=== PATIENT | female | born 1950 | race Caucasian/White ===

== ENCOUNTER → 2018-12-13 08:04 | Outpatient (CLI) | payer MEDICARE, SELFPAY ==
[2018-12-13 09:19] LABS: Add Manual Diff / Slide Review NO; Basophils Absolute Auto 100 /uL (0-100); Basophils Percent Auto 0.9 % (0-2); Eosinophils Absolute Auto 1000 /uL (0-450); Eosinophils Percent Auto 8.6 % (2-4); Hematocrit 37.1 % (36-46); Hemoglobin 12.5 g/dL (12.0-16.0); Lymphocytes Absolute Auto 3600 /uL (1100-4500); Lymphocytes Percent Auto 30.8 % (25-40); Mean Corpuscular HGB Conc 33.6 % (30-36); Mean Corpuscular Hemoglobin 32.3 PG (26-34); Mean Corpuscular Volume 96.2 fL (80-100); Monocytes Absolute Auto 800 /uL (0-900); Monocytes Percent Auto 6.6 % (3-14); Neutrophils Absolute Auto 6200 /uL (1500-7000); Neutrophils Percent Auto 53.1 % (50-75); Platelet Count 429 X10^3/uL (150-400); Red Blood Cell Count 3.86 X10^6/uL (4.0-5.2); Red Cell Distribution Width 12.6 % (11.6-14.8); White Blood Cell Count 11.6 X10^3/uL (4.5-11.0)
[2018-12-13 09:36] LABS: Cholesterol 251 mg/dL (140-199); HDL Cholesterol 31 mg/dL (40-60); LDL Cholesterol Calculated 143 mg/dL (<100); Triglycerides 387 mg/dL (35-150); Uric Acid 7.2 mg/dL (2.5-6.2)
[2018-12-13 10:23] LABS: Hep C Virus Ab w/Reflex Quant NEGATIVE s/c (NEGATIVE)
[2018-12-13 13:16] LABS: Alanine Aminotransferase 21 IU/L (9-52); Albumin 3.9 g/dL (3.5-5.0); Albumin Globulin Ratio 1.1 (1.0-2.8); Alkaline Phosphatase 84 U/L (38-126); Aspartate Aminotransferase 40 IU/L (14-36); BUN Creatinine Ratio 36.7 (6-22); Bilirubin Total 0.3 mg/dL (0.2-1.3); Blood Urea Nitrogen 33 mg/dL (7-17); Calcium 9.4 mg/dL (8.4-10.2); Carbon Dioxide 23 mmol/L (22-32); Chloride 109 mmol/L (98-107); Estimated Glomerular Filt Rate > 60.0 mL/min (>60); Globulin 3.5 g/dL (1.7-4.1); Glucose 99 mg/dL (80-110); HEMOLYSIS < 15 (0-50); Sodium 142 mmol/L (137-145); Total Protein 7.4 g/dL (6.3-8.2)
== END ==
PROVIDERS: PCP Family Medicine; Visit Provider Family Medicine
DX: Z11.59 Encounter for screening for other viral diseases (principal); I10 Essential (primary) hypertension; M10.9 Gout, unspecified; Z79.899 Other long term (current) drug therapy; Z13.220 Encounter for screening for lipoid disorders
CPT/HCPCS: 36415; 80053; 80061; 84550; 85025; 86803

== ENCOUNTER 2019-08-15 05:33 | Emergency (ER) | payer MEDICARE, SELFPAY ==
--- NOTE | 2019-08-15 05:40 | ED_ITS ---
HPI - Extremity Problem General Chief complaint: Extremity Injury, Upper Stated complaint: caught right hand in door Time Seen by Provider: 08/15/19 05:40 Source: patient Mode of arrival: Ambulatory Limitations: no limitations History of Present Illness HPI Narrative: This is a 69-year-old female who comes to the emergency department with complaint of her right hand being slammed in a door. Patient states that was an accident her niece was angry and her hand was caught in a door in the house. She states that she feels safe at home she clearly feels that it is an accident. She has several skin tears on the back of her hand some which seem a little deeper. She states she has normal sensation full range of motion of her fingers. She does have pain in the dorsum of her hand. She denies any other injuries. She does not know if her tetanus is up-to-date. She denies any blood thinners. She does take medication for blood pressure. She denies any prior surgeries. Related Data Home Medications Medication Instructions Recorded Confirmed cetirizine #0 08/21/17 Previous Rx's Medication Instructions Recorded clindamycin HCl 300 mg PO Q6H #40 cap 08/22/17 hydrocodone-acetaminophen [[place]] 1 tab PO Q4HP PRN #30 tab 08/26/17 Allergies Allergy/AdvReac Type Severity Reaction Status Date / Time iodine [IODINE] Allergy Unknown Unverified 09/15/17 12:30 Review of Systems Review of Systems ROS Unobtainable: All systems reviewed & are unremarkable except as noted in HPI and below Patient History Medical History (Updated 08/15/19 @ 07:41 by Edie Resendiz DO) Hypertension (Acute) Social History Smoking Status: Never smoker Smoking Status: Never smoker Substance Use Type: does not use Exam Narrative Exam Narrative: GENERAL: Alert and oriented x three, obese, well-appearing elderly female in mild distress. HEENT: Head normocephalic, atraumatic, EOMI, pupils reactive, face symmetric, moist mucous membranes NECK: Supple, full range of motion CARDIOVASCULAR: Regular rate and rhythm without murmurs, rubs or gallops. RESPIRATORY: Breath sounds equal bilaterally, no wheezes rales or rhonchi. ABDOMEN: Soft, nontender. Normoactive bowel sounds all 4 quadrants. No guarding or rebound, rigidity, no mass EXTREMITIES: Normal range of motion, no clubbing. Patient has swelling and ecchymosis of the dorsum of her right hand. She has 2 small skin tears and 1 deeper laceration combination with a skin tear, patient has full range of motion of all 5 fingers, 5/5 muscle strength with flexion extension. She does not have any bony tenderness over the fingers or wrist on palpation she does have tenderness over the dorsum of the hand. Neurovascularly intact NEUROLOGICAL: Cranial nerves II through XII grossly intact. Moving all extremities SKIN: Warm, dry, no petechiae, no rashes or lesions other than noted above. Initial Vital Signs Initial Vital Signs: Vital Signs Temperature 97.2 F L 08/15/19 05:45 Pulse Rate 98 H 08/15/19 05:45 Respiratory Rate 20 08/15/19 05:45 Blood Pressure 207/93 H 08/15/19 05:45 Pulse Oximetry 96 08/15/19 05:45 Course Orders Ordered: Discontinued Medications Bacitracin (Bacitracin) 1 applic TOP NOW ONE Stop: 08/15/19 07:21 Last Admin: 08/15/19 07:30 Dose: 1 applic Documented by: LAM Diphtheria/Tetanus/Acell Pertussis (Adacel) 0.5 ml IM .ONCE ONE Stop: 08/15/19 05:46 Last Admin: 08/15/19 07:30 Dose: 0.5 ml Documented by: LAM Vital Signs Vital signs: Vital Signs - 8 hr 08/15/19 05:45 Temperature 97.2 F L Pulse Rate 98 H Respiratory Rate 20 Blood Pressure 207/93 H Pulse Oximetry 96 MDM - Extremity (Nontraumatic) Imaging Data Right hand x-ray: Radiologist's Impression: [address] [address] XRay Report Signed Patient: Dagmar Muñiz FMR#: [id number] : 8Acct:[id number] Age/Sex: 69 / FDate of Service: 08/15/19 Loc: ED Accession Number: [id number] Procedure: XR hand RT min 3V Ordering Provider: Edie Resendiz D.O. PROCEDURE: XR HAND RT MIN 3V INDICATIONS: hand slammed in door, skin tears on dorsum, swelling TECHNIQUE: 3 views of the right hand acquired. COMPARISON: [facility], , HAND 3V LEFT, 08/23/2017, 16:53. FINDINGS: Bones: No fractures or dislocations. There are osteoarthritic changes of the interphalangeal joints with joint space narrowing, subchondral sclerosis, and osteophytosis, with moderate degeneration demonstrated at the 1st interphalangeal joint as well as the 2nd, 3rd, and 4th distal interphalangeal joints and the 3rd and 4th proximal interphalangeal joints. There is also moderate degeneration of the triscaphe articulation and mild degeneration of the 1st carpometacarpal joint. No suspicious bony lesions. Soft tissues: No suspicious soft tissue calcifications. No radiopaque foreign bodies. IMPRESSION: 1. No fracture or dislocation. 2. Osteoarthritic changes of the hand as described. Dictated by: Alan Pa M.D. on 08/15/2019 at 11:14 Approved by: Alan Pa M.D. on 08/15/2019 at 11:16 MDM Narrative Medical decision making narrative: Steri-Strips were applied patient has skin tears 1 is slightly deeper. These were applied by Dr. Morrell. With good alignment. Discharge Plan Departure Patient Disposition: Home Clinical Impression: Skin tear of right hand without complication Qualifiers: Encounter type: initial encounter Qualified Code(s): S61.411A - Laceration without foreign body of right hand, initial encounter Discharge Date/Time: 08/15/19 08:33 Instructions: DI for Laceration Repair Steri-Strips Activity Restrictions/Additional Instructions: Follow-up in the next week for recheck if any redness, signs of infection, increasing pain or other new or concerning symptoms. Wound Care: Keep wound(s) clean and dry. Wash twice daily with soap and water only. Do not use over the counter products (alcohol or peroxide)on the wounds unless instructed by a physician. If wound condition worsens (increased/expanding redness, developing fluid blisters, or worsening pain), either contact your doctor for an urgent re- assessment , or return to the Emergency Department. Return to the Emergency Department for any new or worsening symptoms. Return if fever greater than 100.4 Fahrenheit, increased swelling, increasing pain or worsening symptoms such as increased discharge or spreading redness. Prescriptions: No Action cetirizine 10 mg tablet Qty: 0 RF: 0 clindamycin HCl 300 MG capsule 300 mg PO Q6H Qty: 40 RF: 0 hydrocodone-acetaminophen [[place]] 5 MG/325 MG tablet 1 tab PO Q4HP PRNQty: 30 RF: 0 Referrals: Elpidio Reyes MD [Primary Care Provider] -
--- NOTE | 2019-08-15 05:44 | DI.RAD.S_ITS ---
PROCEDURE: XR HAND RT MIN 3V INDICATIONS: hand slammed in door, skin tears on dorsum, swelling TECHNIQUE: 3 views of the right hand acquired. COMPARISON: [facility], , HAND 3V LEFT, 08/23/2017, 16:53. FINDINGS: Bones: No fractures or dislocations. There are osteoarthritic changes of the interphalangeal joints with joint space narrowing, subchondral sclerosis, and osteophytosis, with moderate degeneration demonstrated at the 1st interphalangeal joint as well as the 2nd, 3rd, and 4th distal interphalangeal joints and the 3rd and 4th proximal interphalangeal joints. There is also moderate degeneration of the triscaphe articulation and mild degeneration of the 1st carpometacarpal joint. No suspicious bony lesions. Soft tissues: No suspicious soft tissue calcifications. No radiopaque foreign bodies. IMPRESSION: 1. No fracture or dislocation. 2. Osteoarthritic changes of the hand as described. Dictated by: Alan Pa M.D. on 08/15/2019 at 11:14 Approved by: Alan Pa M.D. on 08/15/2019 at 11:16
[2019-08-15 05:45] VITALS: BP 207/93; PULSE 98; RESP 20; TEMP 36.2; O2SAT 96; BMI 43.9
[2019-08-15] MEDS: TET,DIPH,PERTUSS(ACELL),VAC/PF 0.5 ML SYRINGE IM (07:30)
[2019-08-15] MEDS: BACITRACIN OINT 0.9 GM PCKT 1 APPLIC TOP (07:30)
[2019-08-15 07:45] VITALS: BP 200/92; PULSE 88; RESP 95; TEMP 36.4
--- NOTE | 2019-08-15 08:30 | PC.NURSE ---
saw and treated pt with steri-strip and kerlex and coban/
== END 2019-08-15 08:33 | disposition home or self-care (01) ==
PROVIDERS: Emergency Provider Emergency Medicine; PCP Family Medicine
DX: S61.411A Laceration without foreign body of right hand, initial encounter (principal); W22.8XXA Striking against or struck by other objects, initial encounter; Z23 Encounter for immunization
CPT/HCPCS: 73130; 90471; 99283; 90715

== ENCOUNTER → 2020-07-12 13:27 | Outpatient (CLI) | payer MEDICARE, SELFPAY ==
--- NOTE | 2020-07-12 | DI.RAD.S_ITS ---
PROCEDURE: XR RIBS LT 2V INDICATIONS: Fall (on)(from) sidewalk curb, subsequent encounter TECHNIQUE: To views of the left ribs were acquired. COMPARISON: None. FINDINGS: Surgical changes and devices: None. Bones and chest wall: No fractures or dislocations. No suspicious bony lesions. Overlying soft tissues appear unremarkable. Slight subpulmonic left pleural effusion Lungs and pleura: The visualized lung appears clear. No pneumothorax are visible. IMPRESSION: Slight subpulmonic left pleural effusion, no acute trauma to the ribs is found. Dictated by: Dimitris Arnett M.D. on 07/12/2020 at 14:17 Approved by: Dimitris Arnett M.D. on 07/12/2020 at 14:18
--- NOTE | 2020-07-12 | DI.RAD.S_ITS ---
PROCEDURE: XR CHEST 2V INDICATIONS: Fall (on)(from) sidewalk curb, subsequent encounter TECHNIQUE: 2 views of the chest were acquired. COMPARISON: None. FINDINGS: Surgical changes and devices: None. Lungs and pleura: Lungs are clear except for a slight degree of interstitial prominence. No pleural effusions or pneumothorax. Mediastinum: Mediastinal contours are normal. Heart size is normal. Bones and chest wall: No suspicious bony abnormalities. Soft tissues appear unremarkable. IMPRESSION: Mild interstitial prominence, no focal pneumonia found. No trauma seen. Quality of visualization of the lumbosacral junction on the lateral views limited, presence or absence of compression fracture in that area cannot be accurately evaluated. Dictated by: Dimitris Arnett M.D. on 07/12/2020 at 14:18 Approved by: Dimitris Arnett M.D. on 07/12/2020 at 14:20
== END ==
PROVIDERS: Referring Provider Nurse Practitioner Family; Visit Provider Nurse Practitioner Family
DX: R07.89 Other chest pain (principal)
CPT/HCPCS: 71046; 71100

== ENCOUNTER → 2020-09-05 13:49 | Outpatient (CLI) | payer MEDICARE, SELFPAY ==
[2020-09-05] MEDS: COVID-19 VACC #1, MRNA(MOD) 100 MCG/0.5 ML VIAL IM (13:55)
== END ==
PROVIDERS: Visit Provider Internal Medicine
DX: Z23 Encounter for immunization (principal)
CPT/HCPCS: 0011A; 91301

== ENCOUNTER → 2020-10-03 13:22 | Outpatient (CLI) | payer MEDICARE, SELFPAY ==
[2020-10-03] MEDS: COVID-19 VACC #2, MRNA(MOD) 100 MCG/0.5 ML VIAL IM (13:31)
== END ==
PROVIDERS: Visit Provider Internal Medicine
DX: Z23 Encounter for immunization (principal)
CPT/HCPCS: 0012A; 91301

== ENCOUNTER → 2022-05-09 10:39 | Outpatient (CLI) | payer OTHER, SELFPAY ==
--- NOTE | 2022-05-09 10:45 | DI.RAD.S_ITS ---
PROCEDURE: XR HIP W PEL IF DONE RT 2V INDICATIONS: RIGHT HIP PAIN TECHNIQUE: AP pelvis with lateral view(s) of the right hip(s). COMPARISON: None. FINDINGS: Bones: No fractures or dislocations. Pelvic ring appears intact. No suspicious bony lesions. There is moderate to severe superior joint space narrowing seen of the right hip, with associated remodeling changes with subchondral sclerosis and osteophyte formation. Moderate left hip degenerative change is seen. Age-appropriate lower lumbar spine degenerative changes are noted. Soft tissues: The visualized bowel gas pattern is normal. No suspicious soft tissue calcifications. IMPRESSION: Moderate to severe right hip and moderate left hip degenerative change seen by plain film. If it would be helpful for clinical management decision making, please consider a dedicated hip MRI for further evaluation (assuming that there is no contraindication). If there is strong clinical concern for a labral abnormality, this should be performed according to the arthrogram protocol. Dictated by: Fred Bradford M.D. on 05/09/2022 at 10:33 Approved by: Fred Bradford M.D. on 05/09/2022 at 10:34
== END ==
PROVIDERS: Referring Provider Family Medicine; Visit Provider Family Medicine
DX: M25.551 Pain in right hip (principal)
CPT/HCPCS: 73502

== ENCOUNTER → 2022-06-22 10:44 | Outpatient (CLI) | payer OTHER, SELFPAY ==
[2022-06-22 11:51] LABS: Hemoglobin A1C% w Est Avg Glu 5.6 % (4.0-6.0)
[2022-06-22 11:57] LABS: Prothrombin Time 11.9 SECONDS (10.1-12.7)
[2022-06-22 12:00] LABS: PTT Partial Thromboplastin Tim 30 SECONDS (26-36)
[2022-06-22 12:02] LABS: Add Manual Diff / Slide Review NO; Basophils Absolute Auto 100 /uL (0-100); Basophils Percent Auto 0.7 % (0-2); Eosinophils Absolute Auto 400 /uL (0-450); Eosinophils Percent Auto 3.5 % (2-4); Hematocrit 37.8 % (36-46); Hemoglobin 12.6 g/dL (12.0-16.0); Lymphocytes Absolute Auto 2800 /uL (1100-4500); Lymphocytes Percent Auto 23.4 % (25-40); Mean Corpuscular HGB Conc 33.4 % (30-36); Mean Corpuscular Hemoglobin 32.1 PG (26-34); Mean Corpuscular Volume 96.3 fL (80-100); Monocytes Absolute Auto 900 /uL (0-900); Monocytes Percent Auto 7.4 % (3-14); Neutrophils Absolute Auto 7900 /uL (1500-7000); Platelet Count 388 X10^3/uL (150-400); Red Blood Cell Count 3.93 X10^6/uL (4.0-5.2); Red Cell Distribution Width 12.6 % (11.6-14.8); White Blood Cell Count 12.2 X10^3/uL (4.5-11.0)
[2022-06-22 12:03] LABS: BUN Creatinine Ratio 32.5 (6-22); Blood Urea Nitrogen 27 mg/dL (7-17); Calcium 9.4 mg/dL (8.4-10.2); Carbon Dioxide 23 mmol/L (22-32); Chloride 108 mmol/L (98-107); Estimated Glomerular Filt Rate > 60 mL/min (>60); Glucose 91 mg/dL (80-110); HEMOLYSIS < 15 (0-50); Potassium 4.1 mmol/L (3.4-5.1); Sodium 141 mmol/L (137-145)
== END ==
PROVIDERS: Referring Provider Orthopaedic Surgery; Visit Provider Orthopaedic Surgery
DX: Z01.818 Encounter for other preprocedural examination (principal); Z51.81 Encounter for therapeutic drug level monitoring; R73.9 Hyperglycemia, unspecified; Z01.812 Encounter for preprocedural laboratory examination; N39.0 Urinary tract infection, site not specified
CPT/HCPCS: 36415; 80048; 83036; 85025; 85610; 85730; 93005

== ENCOUNTER 2022-09-11 10:14 | Day surgery (SDC) | payer OTHER, SELFPAY ==
[2022-08-11 10:48] VITALS: BMI 35.6
[2022-09-11] VITALS (12 sets, daily range): BP systolic 130–182; BP diastolic 62–91; PULSE 65–88; RESP 12–19; TEMP 36.2–36.8; O2SAT 91–100; BMI 35.6
--- NOTE | 2022-09-11 06:00 | DI.RAD.S_ITS ---
PROCEDURE: XR PELVIS 1-2V INDICATIONS: prosthesis placement TECHNIQUE: Intra-operative view of the pelvis and hip acquired. COMPARISON: None. FINDINGS: Bones: Intraoperative devices prior to placement of arthroplasty prostheses are in expected positions. No fractures or suspicious bony lesions. Soft tissues: Overlying surgical retractors are present, along with other intraoperative changes. IMPRESSION: Intraoperative trial hardware present. Dictated by: Bud Lott M.D. on 09/11/2022 at 15:58 Approved by: Bud Lott M.D. on 09/11/2022 at 15:58
[2022-09-11] MEDS: VANCOMYCIN 1,000 MG/200 ML PIGGYBACK 200 MG IV (11:05)
[2022-09-11] MEDS: CELECOXIB 200 MG CAPSULE PO (11:07)
[2022-09-11] MEDS: PREGABALIN 75 MG CAPSULE PO (11:07)
[2022-09-11] MEDS: ACETAMINOPHEN 325 MG TABLET 975 MG PO (11:07)
[2022-09-11] MEDS: LACTATED RINGERS 1,000 ML 42 ML IV ×2 (11:09→13:42)
--- NOTE | 2022-09-11 13:04 | P.OP_ITS ---
Operative Date/Time/Diagnoses Date of procedure: 09/11/22 Time of procedure: 13:20 Pre-op diagnosis: right hip OA Post-op diagnosis: same Procedure & Clinicians Procedure: Right total hip arthroplasty posterior approach Same procedure as scheduled: Yes Indications: The patient has had progressively worsening right hip pain with radiographic changes consistent with arthritis. Non-operative management has failed and the patient has requested total hip replacement. The risks, benefits and alternatives to surgery were discussed with the patient prior to proceeding. Risks discussed included, but were not limited to, failure to relieve pain, leg length discrepancy, dislocation, stiffness, infection, nerve damage, deep venous thrombosis, pulmonary embolism, stroke, coma, heart attack, permanent paralysis and , as well as the potential need for eventual revision of the prosthetic. Surgeon: Shira Wlikinson Butadiene Converter Helper: Zayda Reyes Anesthesia Type: General and Spinal Operative Notes Findings: Severe right hip osteoarthritis, adequate stability, adequate bone Closure Type: primary Specimen(s): none sent Prosthetic devices, grafts, tissues, transplants, or devices: [employer]ology standard offset size 10, one 6.5 mm screw, neutral poly liner, R3 52 mm, 36 x +4 cobalt chromium Estimated Blood Loss (mL): 250 Blood products transfused: none Procedure in detail: The patient was seen in the pre-operative area, where the patient identified the right hip as the operative site and this was marked with my initials. The patient received pre-operative antibiotics and was taken to the operating room and placed on the operative table in the left lateral decubitus position after satisfactory anesthesia. A full time paramedic out was performed. The right leg was prepared from the ankle to the iliac crest with ChloroPrep in the usual fashion and draped through sterile drapes. The hip was approached through an approximately 20 cm incision centered over the greater trochanter and curving gently posteriorly as it went proximally. This was carried sharply to the fascia julissa, which was divided and retracted with a self retaining retractor. The trochanteric bursa was excised with care being taken to avoid the sciatic nerve, which was identified and protected throughout the case. The short external rotators were incised and the capsulomuscular flap was raised and tagged for later repair. The hip was dislocated, and a femoral neck osteotomy performed approximately 15 mm above the lesser trochanter. Retractors were placed around the femur. The canal was opened with a box cutting osteotome, followed by a T handled reamer and a lateralizing reamer. The chili pepper broach was then used, followed by sequential broaching until there was good stability of the broach in the femur. Retractors were placed to expose the acetabulum. The labrum and central soft tissues were removed. Reaming was performed initially going up in 2 mm increments, then 1 mm increments until good bite was obtained with an odd sized reamer. The cup 1 mm larger than the last reamer was then inserted using the appropriate anteversion guides. It was further stabilized with a single screw. A trial neutral liner was placed. The broach was placed in the canal. A trial head and neck were then placed and the hip relocated and checked for leg length and stability. An intraoperative film confirmed the component position and no evidence of fracture. The patient was stable in the position of sleep, of squatting, and could be put through a range of motion with 45 degrees internal rotation without dislocation. At 90 degrees flexion, internal rotation to 70 ? was possible before dislocation. This was felt to be satisfactory and the appropriate components were opened, and the trials were removed. The acetabular liner was impacted into position. The final stem was then impacted into the prepared femoral canal. A brief Betadine soak was performed while trialing with head options. The hip was meticulously irrigated with normal saline. Finally the femoral head was impacted onto the stem. The acetabulum was cleared of all material and the hip relocated one final time. The capsulomuscular flap was then repaired to the greater trochanter though an awl hole using the tag sutures. The short external rotators were repaired with a nonabsorbable suture. The fascia julissa was closed with Vicryl. The subcutaneous layer was closed with barbed sutures and SteriStrips. A Shannan dressing was applied and the patient was taken to recovery having tolerated the procedure well. Complications: none Post-operative Condition: stable Disposition: Acute Care Plan for aftercare: The patient will be maintained on a standard total hip replacement protocol with weight bearing as tolerated and posterior hip precautions. The patient will receive Aspirin and sequential compression devices for DVT prophylaxis. The patient will be discharged home when safe for the home environment.
--- NOTE | 2022-09-11 13:04 | PM.PREOP ---
Pre-operative Note COVID-19 COVID-19 status: Negative Interval Note History & Physical reviewed/Exam performed by Physician: Yes Changes to H&P: No
[2022-09-11 13:47] LABS: COVID19 -Nasal RAPID Negative (Negative)
[2022-09-11] MEDS: CEFAZOLIN 2 GM/100 ML PREMIX 100 ML IV ×2 (14:12→21:01)
[2022-09-11] MEDS: TRANEXAMIC ACID 1,000 MG VIAL 1000 MG INJ ×2 (14:42→15:56)
--- NOTE | 2022-09-11 14:44 | SUR.OPER ---
Lateral on padded OR bed. Gel axillary roll. Arms secured on padded armboard with pillow supporting top arm. Padded hip positioner braces x4 - anterior and posterior chest and pelvis. Additional gel pad used anterior pelvis. Gel pad under bottom leg from knee to foot and secured with tape over sheet.
[2022-09-11] MEDS: BUPIVACAINE LIPOSOME 266 MG/20 ML VIAL INJ (14:54)
[2022-09-11] MEDS: BUPIVACAINE 0.25% (PF) 60 ML, EPINEPHrine 0.3 MG INJ (14:57)
--- NOTE | 2022-09-11 16:36 | DI.RAD.S_ITS ---
PROCEDURE: XR HIP W PEL IF DONE RT 2V INDICATIONS: post thr TECHNIQUE: 2 view(s) of the hip acquired. COMPARISON: [facility], CR, XR HIP W PEL IF DONE RT 2V, 05/09/2022, 10:56. FINDINGS: Bones: Patient is status post right hip arthroplasty, with hardware components in expected positions. The hip joint appears congruent. The visualized bony structures appear intact. Soft tissues: Overlying postoperative changes are noted. No suspicious soft tissue densities. IMPRESSION: Well-aligned, intact right hip arthroplasty without hardware complication. Dictated by: Bud Lott M.D. on 09/11/2022 at 16:51 Approved by: Bud Lott M.D. on 09/11/2022 at 16:52
[2022-09-11] MEDS: HYDROMORPHONE 2 MG INJ IV (16:43)
[2022-09-11] MEDS: hydrOXYzine pamoate 25 MG CAPSULE PO (16:50)
[2022-09-11] MEDS: OXYCODONE IR 5 MG TABLET PO (16:50)
[2022-09-11] MEDS: IBUPROFEN 400 MG TABLET PO ×2 (18:32→20:26)
[2022-09-11] MEDS: ACETAMINOPHEN 325 MG TABLET 650 MG PO ×2 (18:32→23:31)
[2022-09-11] MEDS: LACTATED RINGERS 1,000 ML 100 ML IV (18:33)
--- NOTE | 2022-09-11 18:49 | PC.NURSE ---
PT arrived to room 206 at 1730. A&OX4.VSS, afebrile (slightly hypertensive but did not take am antihypertensives she routinely takes) She is initially on 2 LNC but weaned to room air and 02 sats are 97% on RA. She reports pain to R hip is tolerable at 3/10 Shannan dressing c/d/i. She denies numbnes/tingling to RLE, reports muscles feel tight. LR at 100 ml/hr, SCDS on Bed alarm on, call light in reach. She is encouraged to IS.Continuous monitoring
[2022-09-11] MEDS: ASPIRIN EC 81 MG TABLET PO (20:25)
[2022-09-11] MEDS: DOCUSATE 100 MG CAPSULE PO (20:25)
[2022-09-11] MEDS: MONTELUKAST 10 MG TABLET PO (20:26)
[2022-09-11] MEDS: MELATONIN 3 MG TABLET 6 MG PO (23:58)
[2022-09-12] MEDS: IBUPROFEN 400 MG TABLET PO ×4 (00:12→14:27)
[2022-09-12] MEDS: LACTATED RINGERS 1,000 ML 100 ML IV (03:33)
[2022-09-12] MEDS: CEFAZOLIN 2 GM/100 ML PREMIX 100 ML IV (05:57)
--- NOTE | 2022-09-12 06:01 | PC.NURSE ---
Pt A&Ox4, VSS, weaned from 2L to 1L O2 and satting mid-90s. Weaned to 0L with good results while pt awake, but when sleeping pt satted 92%, returned to 1L. Pt c/o pain 1-08/14 during shift, managed well with scheduled Tylenol/Ibuprofen, ice pack. Pt c/o lack of sleep and requested not to be woken for scheduled pain meds/turns. Up to BSC with 1 person assist for void, tolerated well but anxious about doing things properly. Educated about keeping post-op leg along mid-line, safe use of walker and exiting the bed.
[2022-09-12] MEDS: ACETAMINOPHEN 325 MG TABLET 650 MG PO ×2 (06:14→12:18)
[2022-09-12 07:23] LABS: Hematocrit 32.4 % (36-46); Hemoglobin 10.9 g/dL (12.0-16.0)
--- NOTE | 2022-09-12 07:28 | PC.NURSE ---
Urine output malodorous.
[2022-09-12 09:00] VITALS: BP 151/55; PULSE 72; RESP 17; TEMP 36.6; O2SAT 94
[2022-09-12] MEDS: hydroCHLOROthiazide 25 MG TABLET 12.5 MG PO (09:37)
[2022-09-12] MEDS: lisinopriL 10 MG TABLET PO (09:39)
[2022-09-12] MEDS: DOCUSATE 100 MG CAPSULE PO (09:39)
[2022-09-12] MEDS: ASPIRIN EC 81 MG TABLET PO (09:39)
[2022-09-12] MEDS: allopurinoL 100 MG TABLET 200 MG PO (09:39)
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
--- NOTE | 2022-09-12 10:50 | CM.DANOTE ---
Initial Discharge Assessment Note: Case reviewed, met with patient. Introduced self and role. Payer: [employer]age and self pay PCP: Jeovany Marquez 72 year old female underwent hip arthroplasty on 09/11/22. She just got up with nurse and was tearful and disappointed she didn't do better. RIGHT OF WAY MANAGER pending. Anna is independent and drives at baseline. She lives in [place] with her niece and her family for the past 10 years. She is familiar with [facility] in past for a family member and preference is [facility] for HH. Her niece is available for help at home. She will need a BSC, spoke with niece Luz who will work on procuring one for her and then come to visit today 1:30-2. RIGHT OF WAY MANAGER will want to do cg training with her. [facility] is out til 09/16 for PT and 09/18 for RN. Left messages with [facility] and [facility]. Plan: Discharge home when medically/surgically cleared. Notify agency and send DC summary, F2F. SEJ Discharge Planning/Care Management CM Discharge Assessment Start: 09/12/22 10:46 Freq: Status: Active Protocol: Document 09/12/22 10:47 (Rec: 09/12/22 10:50 [id number]) Discharge Planning Assessment Assigned Tractor Technician Addie Stone RN/DCP Advance Directives? Yes Advance Directives on File Yes History Provided By Patient Prior Living Arrangements House Comment lives with niece and Household Members spouse,family Type of transporation used prior to Drives own vehicle admit Independent with ADL's Yes Is patient alert and oriented? Yes Caregiver for Another No Barriers to Discharge No Discharge Plan Home Transportation Arrangement Niece to transport Referrals Initiated None needed Review Status In Process Next Review Type Continued Stay Review Pre-Anesthesia Assessment Start: 08/11/22 10:48 Freq: Status: Active Protocol: Document 08/11/22 10:48 CAB (Rec: 08/11/22 11:23 CAB [id number]) Pre-Anesthesia Assessment Preferred Name Anna Patient Information Reviewed Via Phone Assessment Assessment Completed With Patient Diagnostic Results BMP/CMP,CBC,EKG Comment Labs/EKG @ 06/22/22 Primary Care Provider Jeovany Jimmy Seen Specialist in Last 12 Months Yes Specialist Seen Orthopedist Primary Language Wolof Transfer Table Operator Helper Required No Height 165.1 cm Weight 97.069 kg Body Mass Index (BMI) 35.6 Hearing Ability Normal Visual Assist Glasses Dentition Type Teeth, Natural Present,Teeth, Missing Barriers to Learning None Hx Anesthesia Reactions No Hx Family Anesthesia Reaction No Hx Malignant Hyperthermia No Hx Blood Transfusions No Anesthesia Review Requested No Tattoo Technician No alcohol intake current alcohol intake frequency holidays/special occasions only Smoking Status Former smoker how long ago did patient quit smoking Quit approx 30 years ago Substance Use Type does not use Pain Present Pain Reported Musculoskeletal Symptoms Abnormal Gait,Difficulty Walking,Joint Pain History of Falling (Recent or History of No ) Patient is completely paralyzed or No completely immobile Prosthesis or Orthotic Device Front Wheel Walker Mental Status Oriented to own ability Is patient on oxygen? No Does patient have BLANKENSHIP/SOB No Hx Sleep Apnea No Currently Taking a Beta Alfonzo No Hx Chest Pain No Hx SOB No Hx Syncope or Dizziness No Anti-Coagulant Therapy No Has a Wire Wrapping Machine Operator No Cardiac Testing No Hx Pacemaker/ICD No Pacemaker Rep Required? No Cardiac Clearance Received Not Applicable Diet Type At Home Regular Dysphagia No Gastrointestinal Symptoms None Bladder Pattern Frequency,Incontinent,Urgency Urinary Catheter Present No Hx Urinary Self Catheterization No Diabetes No HgbA1C 5.6 Date 06/22/22 Patient No Lactating No Hx Drug Resistant Organism No Presence of External or Internal Medical No Devices Have you had any close contact with No someone diagnosed with COVID-19? Received a COVID vaccine? Yes Received all doses? No Marital Status Single Lives With family Current Living Arrangements House Number of Floors (Floors) Two Floors Support System Child/Children,Family Does the Patient Have Assistance After Yes Surgery Patient Discharge Plan Description Return Home Comment Pt advised possible same day surgery per surgeon Feels Safe in Current Environment Yes Been Physically Hurt or Threatened By a No Person in Current Environment Do you have thoughts of harming yourself None or others? Are you currently considering suicide? No Do you have a plan to hurt yourself or No Plan others? Do You Have Any Spiritual Beliefs That No May Affect Your HC Choices? Do You Have Any Cultural Practices That No May Affect Your HC Choices? Comment [place] Who Can We Speak to About Patient's Care Family, friends Identifying Code for Release of Patient Declines to issue Information Health Care Proxy/Next of Kin Luz (daughter) Health Care Proxy Emergency Contact Name Luz (daughter) Emergency Contact Advance Directives? No Power of Booster Station Operator No PAC Instructions Do not shave/clip surgical site,Durable medical equipment ,Medications to take/avoid, Nasal antibiotic,No ETOH/ petroleum product on skin DOS, NPO,Post-op transportation,Pre -op antibiotic,Pre-surgical wash,Sensory aids,Sturdy shoes /comfortable clothes,Do not bring valuables and remove jewelry
[2022-09-12] MEDS: TRAMADOL 50 MG TABLET PO (12:17)
[2022-09-12 13:11] VITALS: BP 140/51; PULSE 72; RESP 16; TEMP 36.5; O2SAT 96
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
--- NOTE | 2022-09-12 15:58 | PC.NURSE ---
patient 1-2 PA oob w/ FWW to chair after breakfast. tolerated well. good safety awareness, following hip precautions. dressing to R hip is CDI. alexandre drain intact. new med tramadol discussed w/ patient- reports -11/14 pain w/ transfers and ambulation, WBAT. d/c reviewed w/ patient. she states she understands the d/c instructions.
== END 2022-09-12 15:00 | disposition home or self-care (01) ==
LOC: OR 12:51 → AC 16:08 → OR 16:09 → AC 17:18
PROVIDERS: PCP Family Medicine; Referring Provider Family Medicine; Visit Provider Orthopaedic Surgery
PROC: 0SR90JZ Replacement of Right Hip Joint with Synthetic Substitute, Open Approach (ICD-10-PCS; CPT 27130; principal; 2022-09-11 12:30)
DX: M16.11 Unilateral primary osteoarthritis, right hip (principal); Z20.822 Contact with and (suspected) exposure to COVID-19
CPT/HCPCS: 27130; 36415; 72170; 73502; 85014; 85018; 87635; 97110; 97162; 97530; C1776; C9803; C9290; J0171; J0690; J1100; J1170; J2250; J2405; J2704; J3010